=== PATIENT | female | born 1965 | race Caucasian/White ===

== ENCOUNTER 2021-04-09 16:38 | Emergency (ER) | payer BC, SELFPAY ==
[2021-04-09 16:43] VITALS: BP 133/77; PULSE 89; RESP 18; TEMP 37.6; O2SAT 92
--- NOTE | 2021-04-09 16:58 | DI.RAD.S_ITS ---
PROCEDURE: XR CHEST 1V INDICATIONS: shortness of breath TECHNIQUE: One view of the chest was acquired. COMPARISON: [facility], CT, CHEST W/O CONTRAST, 11/13/2013, 16:12. FINDINGS: Surgical changes and devices: None. Lungs and pleura: Bilateral lower lung zone infiltrates consistent with pneumonia. No pleural effusions or pneumothorax. Mediastinum: Mediastinal contours appear normal. Heart size is normal. Bones and chest wall: No suspicious bony lesions. Overlying soft tissues appear unremarkable. IMPRESSION: Bilateral pneumonia. Dictated by: Abdirahman Fam M.D. on 04/09/2021 at 17:39 Approved by: Abdirahman Fam M.D. on 04/09/2021 at 17:39
[2021-04-09 17:12] LABS: Add Manual Diff / Slide Review NO; Basophils Absolute Auto 0 /uL (0-100); Basophils Percent Auto 0.5 % (0-2); Eosinophils Absolute Auto 0 /uL (0-450); Eosinophils Percent Auto 0.1 % (2-4); Hematocrit 38.3 % (36-46); Hemoglobin 12.4 g/dL (12.0-16.0); Lymphocytes Absolute Auto 600 /uL (1100-4500); Lymphocytes Percent Auto 17.1 % (25-40); Mean Corpuscular HGB Conc 32.4 % (30-36); Mean Corpuscular Volume 83.2 fL (80-100); Monocytes Absolute Auto 400 /uL (0-900); Monocytes Percent Auto 12.1 % (3-14); Neutrophils Absolute Auto 2300 /uL (1500-7000); Neutrophils Percent Auto 70.2 % (50-75); Platelet Count 203 X10^3/uL (150-400); Red Cell Distribution Width 13.2 % (11.6-14.8); White Blood Cell Count 3.3 X10^3/uL (4.5-11.0)
[2021-04-09 17:16] LABS: Lactate (Lactic Acid) 1.2 mmol/L (0.7-2.1)
[2021-04-09 17:17] LABS: Alanine Aminotransferase 31 IU/L (<35); Albumin 4.2 g/dL (3.5-5.0); Albumin Globulin Ratio 1.6 (1.0-2.8); Alkaline Phosphatase 82 U/L (38-126); Aspartate Aminotransferase 51 IU/L (14-36); BUN Creatinine Ratio 13.2 (6-22); Bilirubin Total 0.5 mg/dL (0.2-1.3); Blood Urea Nitrogen 7 mg/dL (7-17); Carbon Dioxide 27 mmol/L (22-32); Chloride 99 mmol/L (98-107); Estimated Glomerular Filt Rate > 60.0 mL/min (>60); Globulin 2.6 g/dL (1.7-4.1); Glucose 99 mg/dL (70-100); HEMOLYSIS < 15 (0-50); Potassium 3.5 mmol/L (3.4-5.1); Sodium 138 mmol/L (137-145); Total Protein 6.8 g/dL (6.3-8.2)
--- NOTE | 2021-04-09 18:37 | ED_ITS ---
HPI - General Adult General Chief complaint: Shortness of Breath/Dyspnea Stated complaint: SOB Time Seen by Provider: 04/09/21 17:55 Source: patient and EMS Mode of arrival: EMS History of Present Illness HPI narrative: Patient is a 55-year-old female. Has a known diagnosis of COVID- 19. Is not vaccinated. Diagnosis several days ago. Here for evaluation of shortness of breath. Is having chest congestion. No chest pain. No headache. No vomiting. Related Data Home Medications Medication Instructions Recorded Confirmed RISEDRONATE SODIUM (Actonel) 35 mg PO EVERY WEEK #0 07/07/10 Review of Systems Constitutional Constitutional: Reports body ache(s) Cardiovascular Cardiovascular: Denies chest pain and Reports dyspnea Respiratory Respiratory: Reports cough and Reports dyspnea Gastrointestinal Gastrointestinal: Reports system reviewed and no additional complaints, except as documented Integumentary/Breasts Skin/Breast: Reports system reviewed and no additional complaints, except as documented Neurologic Neurologic: Reports system reviewed and no additional complaints, except as documented Hematologic/Lymphatic On Anticoagulants: No Patient History Medical History Healthy adult Social History marital status: Exam Initial Vital Signs Initial Vital Signs: Vital Signs Temperature 99.6 F 04/09/21 16:43 Pulse Rate 89 04/09/21 16:43 Respiratory Rate 18 04/09/21 16:43 Blood Pressure 133/77 04/09/21 16:43 Pulse Oximetry 92 04/09/21 16:43 HENMT Head: normal to inspection and normocephalic Resp Effort & Inspection: not labored, no respiratory distress and tachypneic Auscultation: clear to auscultation bilaterally Cardio Rate: regular rate Rhythm: regular rhythm GI Inspection: normal to inspection Neuro General: patient alert and patient awake Course Orders Ordered: ED Orders 04/09/21 16:54 Complete Blood Count AUTO DIFF Stat Comprehensive Metabolic Panel Stat Lactate (Lactic Acid) Stat 04/09/21 16:58 XR chest 1V Stat EKG-12 Lead Stat Measure peak expiratory flow ONCE RT Consult Eval and Treat Now Vital Signs Vital signs: Vital Signs - 8 hr 04/09/21 18:53 Pulse Rate 85 Respiratory Rate 20 Blood Pressure 133/74 Pulse Oximetry 93 Medical Decision Making Lab Data Lab results reviewed: Yes I reviewed the patient's lab results. Result diagrams: 04/09/21 16:54 04/09/21 16:54 Labs: Lab Results 04/09/21 04/09/21 04/09/21 Range/Units 16:54 16:54 16:54 WBC 3.3 L (4.5-11.0) X10^3/uL RBC 4.60 (4.0-5.2) X10^6/uL Hgb 12.4 (12.0-16.0) g/dL Hct 38.3 (36-46) % MCV 83.2 (80-100) fL MCH 27.0 (26-34) PG MCHC 32.4 (30-36) % RDW 13.2 (11.6-14.8) % Plt Count 203 (150-400) X10^3/uL Neut % (Auto) 70.2 (50-75) % Lymph % (Auto) 17.1 L (25-40) % [place] % (Auto) 12.1 (3-14) % Eos % (Auto) 0.1 L (2-4) % Baso % (Auto) 0.5 (0-2) % Neut # (Auto) 2300 (8725-3397) /uL Lymph # (Auto) 600 L (2226-3139) /uL [place] # (Auto) 400 (0-900) /uL Eos # (Auto) 0 (0-450) /uL Baso # (Auto) 0 (0-100) /uL Sodium 138 (137-145) mmol/L Potassium 3.5 (3.4-5.1) mmol/L Chloride 99 (98-107) mmol/L Carbon Dioxide 27 (22-32) mmol/L BUN 7 (7-17) mg/dL Creatinine 0.53 (0.52-1.04) mg/dL Estimated GFR > 60.0 (>60) mL/min BUN/Creatinine Ratio 13.2 (6-22) Glucose 99 (70-100) mg/dL Lactate 1.2 (0.7-2.1) mmol/L Calcium 9.0 (8.4-10.2) mg/dL Total Bilirubin 0.5 (0.2-1.3) mg/dL AST 51 H (14-36) IU/L ALT 31 (<35) IU/L Alkaline Phosphatase 82 (38-126) U/L Total Protein 6.8 (6.3-8.2) g/dL Albumin 4.2 (3.5-5.0) g/dL Globulin 2.6 (1.7-4.1) g/dL Albumin/Globulin Ratio 1.6 (1.0-2.8) Imaging Data Chest x-ray: Radiologist's Impression: [address] [address] XRay Report Signed Patient: Rina Borrero MR#: [id number] : 1965 Acct:[id number] Age/Sex: 55 / F Date of Service: 04/09/21 Loc: ED Accession Number: [id number] ?? Procedure: XR chest 1V Ordering Provider: Bibiana Khalil D.O. PROCEDURE:? XR CHEST 1V ? INDICATIONS:? shortness of breath ? TECHNIQUE:? One view of the chest was acquired.? ? COMPARISON:? [facility], CT, CHEST W/O CONTRAST, 11/13/2013, 16:12. ? FINDINGS:? ? Surgical changes and devices:? None.? ? Lungs and pleura:? Bilateral lower lung zone infiltrates consistent with pneumonia.? No pleural effusions or pneumothorax.? ? Mediastinum:? Mediastinal contours appear normal.? Heart size is normal.? ? Bones and chest wall:? No suspicious bony lesions.? Overlying soft tissues appear unremarkable.? ? IMPRESSION:? Bilateral pneumonia. ? ? Dictated by: Abdirahman Fam M.D. on 04/09/2021 at 17:39 ? ? Approved by: Abdirahman Fam M.D. on 04/09/2021 at 17:39?? MDM Narrative Medical decision making narrative: Known to be COVID positive. Not in respira tory distress. Not hypoxic. Is somewhat tachypneic. Chest x-ray shows bilateral pneumonia consistent with COVID-19. No indication for admission to the hospital currently. We did discuss return precautions follow up instructions. She expressed understanding and agreement. Discharge Plan Departure Patient Disposition: Home Clinical Impression: COVID-19 Instructions: DI for COVID-19 (Suspected or Confirmed ) Activity Restrictions/Additional Instructions: Continue to use your albuterol as needed at home. Continue to check your oxygen saturations and if you are consistently below 90 you do need to return to the emergency department. You do need to quarantine yourself until you have been symptom-free for 24 hours. Prescriptions: No Action RISEDRONATE SODIUM (Actonel) 35 mg PO EVERY WEEK Qty: 0 RF: 0 Referrals: Gabriel Perez MD [Primary Care Provider] -
[2021-04-09 18:53] VITALS: BP 133/74; PULSE 85; RESP 20; O2SAT 93
== END 2021-04-09 19:03 | disposition home or self-care (01) ==
PROVIDERS: Emergency Medicine; Emergency Provider Emergency Medicine; Family Provider Family Medicine; PCP Family Medicine
DX: U07.1 COVID-19 (principal); J12.82 Pneumonia due to coronavirus disease 2019; R06.00 Dyspnea, unspecified; R05.9 Cough, unspecified; R09.89 Other specified symptoms and signs involving the circulatory and respiratory systems
CPT/HCPCS: 36415; 71045; 80053; 83605; 85025; 93005; 99283; 99284